=== PATIENT | female | born 1980 | race Caucasian/White ===

== ENCOUNTER 2020-08-21 16:33 | Outpatient (REF) | payer MEDICAID, SELFPAY ==
--- NOTE | ~2020-08-21 | US_ITS ---
EXAMINATION: PELVIC ULTRASOUND CLINICAL INFORMATION: Pain. Rule out torsion. COMPARISON: Previous CT of the abdomen and pelvis August 2017 and pelvic ultrasound most recent February 2019 TECHNIQUE: Transabdominal and transvaginal pelvic ultrasound was performed. Transvaginal exam was performed for better visualization of the uterus and ovaries. FINDINGS: The uterus is anteverted and measures 7.7 x 3.8 x 4.8 cm in dimension. No focal uterine lesion is seen. Endometrial thickness is normal measuring 0.4 cm. The ovaries are normal-appearing. The right ovary measures 1.4 x 1.8 x 1.1 cm and the left ovary measures 2.2 x 1.7 x 1 cm. Arterial and venous flow is documented to both ovaries. There is no evidence of torsion. There is no fluid in the pelvis. US/US pelvic ovarian doppler IMPRESSION: Normal pelvic ultrasound. No evidence of torsion.
--- NOTE | ~2020-08-21 | US_ITS ---
EXAMINATION: PELVIC ULTRASOUND CLINICAL INFORMATION: Pain. Rule out torsion. COMPARISON: Previous CT of the abdomen and pelvis August 2017 and pelvic ultrasound most recent February 2019 TECHNIQUE: Transabdominal and transvaginal pelvic ultrasound was performed. Transvaginal exam was performed for better visualization of the uterus and ovaries. FINDINGS: The uterus is anteverted and measures 7.7 x 3.8 x 4.8 cm in dimension. No focal uterine lesion is seen. Endometrial thickness is normal measuring 0.4 cm. The ovaries are normal-appearing. The right ovary measures 1.4 x 1.8 x 1.1 cm and the left ovary measures 2.2 x 1.7 x 1 cm. Arterial and venous flow is documented to both ovaries. There is no evidence of torsion. There is no fluid in the pelvis. US/US pelvic complete IMPRESSION: Normal pelvic ultrasound. No evidence of torsion.
--- NOTE | ~2020-08-21 | US_ITS ---
EXAMINATION: PELVIC ULTRASOUND CLINICAL INFORMATION: Pain. Rule out torsion. COMPARISON: Previous CT of the abdomen and pelvis August 2017 and pelvic ultrasound most recent February 2019 TECHNIQUE: Transabdominal and transvaginal pelvic ultrasound was performed. Transvaginal exam was performed for better visualization of the uterus and ovaries. FINDINGS: The uterus is anteverted and measures 7.7 x 3.8 x 4.8 cm in dimension. No focal uterine lesion is seen. Endometrial thickness is normal measuring 0.4 cm. The ovaries are normal-appearing. The right ovary measures 1.4 x 1.8 x 1.1 cm and the left ovary measures 2.2 x 1.7 x 1 cm. Arterial and venous flow is documented to both ovaries. There is no evidence of torsion. There is no fluid in the pelvis. US/US transvaginal IMPRESSION: Normal pelvic ultrasound. No evidence of torsion.
== END 2020-08-21 16:34 | disposition home or self-care (01) ==
LOC: HO.US 16:33
PROVIDERS: Absent Provider Internal Medicine Geriatric Medicine; PCP Internal Medicine Geriatric Medicine; Visit Provider Registered Nurse
DX: R10.2 Pelvic and perineal pain (principal); N92.0 Excessive and frequent menstruation with regular cycle
CPT/HCPCS: 76830; 76856; 93975

== ENCOUNTER 2020-08-22 15:54 | Outpatient (REF) | payer MEDICAID, SELFPAY ==
[2020-08-22 17:34] LABS: HCG Quantitative < 2 mIU/mL
== END 2020-08-22 15:55 | disposition home or self-care (01) ==
LOC: HO.LAB 15:54
PROVIDERS: Registered Nurse; PCP Internal Medicine Geriatric Medicine; Visit Provider Internal Medicine Geriatric Medicine
DX: N92.0 Excessive and frequent menstruation with regular cycle (principal); R10.2 Pelvic and perineal pain; Z32.02 Encounter for pregnancy test, result negative
CPT/HCPCS: 36415; 84702

== ENCOUNTER 2021-02-06 09:05 | Outpatient (REF) | payer MEDICAID, SELFPAY | END 2021-02-06 09:06 | disposition home or self-care (01) | LOC: HO.LAB 09:05 | PROVIDERS: Visit Provider Advanced Practice Midwife | DX: O99.320 Drug use complicating pregnancy, unspecified trimester (principal); O20.9 Hemorrhage in early pregnancy, unspecified; O20.0 Threatened abortion; F11.90 Opioid use, unspecified, uncomplicated | CPT/HCPCS: 36415; 81025; 84702; 99202 ==

== ENCOUNTER 2021-02-08 13:49 | Outpatient (REF) | payer MEDICAID, SELFPAY ==
--- NOTE | ~2021-02-08 | US_ITS ---
EXAMINATION: US OBSTETRICAL ULTRASOUND CLINICAL INFORMATION: History of hemorrhage in early . Dating. COMPARISON: None. LMP: 12/07/2020. Gestational age by maternal dates is 9 weeks 0 days. Estimated date of delivery by maternal dates is 09/13/2021. TECHNIQUE: Transabdominal first trimester OB ultrasound FINDINGS: There is a single intrauterine gestational sac with visible yolk sac, embryo/fetus, and cardiac activity. There is no significant subchorionic hemorrhage or hematoma. HR: 163 beats per minute. CRL (crown rump length): 2.5 cm (9 weeks 3 days +/- 4 days). GIFTY (estimated date of delivery): 09/10/2021 +/- 4 days. MATERNAL ADNEXA: The right maternal ovary measures 1.9 x 1.7 x 3.7 cm. The left maternal ovary measures 3.4 x 2.6 x 3.7 cm. There is no significant maternal adnexal mass. No maternal pelvic ascites. US/US OB <= 14 weeks fetus IMPRESSION: 1. Single intrauterine gestation with ultrasound gestational age of 9 weeks 3 days +/- 4 days. 2. Estimated date of delivery is 09/10/2021 +/- 4 days. 3. No maternal adnexal mass or pelvic ascites.
== END 2021-02-08 13:50 | disposition home or self-care (01) ==
LOC: HO.HMGCX 13:49
PROVIDERS: PCP Internal Medicine Geriatric Medicine; Visit Provider Advanced Practice Midwife
DX: O20.9 Hemorrhage in early pregnancy, unspecified (principal); O09.529 Supervision of elderly multigravida, unspecified trimester
CPT/HCPCS: 76801

== ENCOUNTER → 2021-02-16 13:51 | Outpatient (BNVA) | payer MEDICAID, SELFPAY | PROVIDERS: PCP Internal Medicine Geriatric Medicine; Visit Provider Advanced Practice Midwife | DX: O99.211 Obesity complicating pregnancy, first trimester (principal); E66.9 Obesity, unspecified; Z3A.10 10 weeks gestation of pregnancy | CPT/HCPCS: 99212 ==

== ENCOUNTER 2021-02-21 09:25 | Outpatient (REF) | payer MEDICAID, SELFPAY ==
[2021-02-21 10:02] LABS: Hematocrit 38.2 % (37.0-47.0); Hemoglobin 12.5 g/dl (12.0-16.0); Mean Corpuscular HGB Conc 32.7 g/dl (31.0-35.0); Mean Corpuscular Hemoglobin 30.9 pg (27.0-33.0); Mean Corpuscular Volume 94.3 fL (80.0-98.0); Mean Platelet Volume 10.3 fL (9.4-12.3); Platelet Count 254 X10*3/uL (160-400); Red Blood Count 4.05 X10*6/uL (4.20-5.50); White Blood Count 6.4 X10*3/uL (4.8-10.8)
[2021-02-21 10:58] LABS: Alanine Aminotransferase 12 U/L (0-31); Aspartate Amino Transferase 15 U/L (5-31); Blood Urea Nitrogen 6 mg/dL (9-16); Estimated Glomerular Filt Rate > 60
[2021-02-21 10:59] LABS: HBsAGNum1 0.15 S/CO (0.00-0.99); HIV AB/AG Nonreactive (Nonreactive); HIV Num 1 0.08 S/CO (0.00-0.99); Hepatitis B Surface Antigen Negative (Negative)
[2021-02-21 11:03] LABS: Syphilis Screen Nonreactive (Nonreactive)
[2021-02-21 11:09] LABS: Uric Acid 2.7 mg/dL (2.4-5.7)
[2021-02-21 11:19] LABS: Amphetamine Screen Urine Not Detected (Not Detect); Barbiturates, Urine Not Detected (Not Detect); Benzodiazepines Screen Urine Not Detected (Not Detect); Cannabinoid Screen Urine Not Detected (Not Detect); Cocaine Screen Urine Not Detected (Not Detect); Fentanyl, urine Not Detected (Not Detect); Opiate Screen Urine Not Detected (Not Detect); Phencyclidine Screen Urine Not Detected (Not Detect)
[2021-02-21 11:22] LABS: Creatinine Urine 130.63 mg/dL; Total Protein Urine Random < 7 mg/dL (<12)
[2021-02-21 11:30] LABS: ~HepC Num1 0.06 S/CO (0.00-0.79); ~Hepatitis C Antibody Nonreactive (Nonreactive)
[2021-02-21 12:05] LABS: Glucose 1 Hour PP 50gm Dose 107 mg/dL (60-140)
[2021-02-22 19:01] LABS: Rubella IgG Antibody 2.02 Index
== END 2021-02-21 09:26 | disposition home or self-care (01) ==
LOC: HO.LAB 09:25
PROVIDERS: PCP Internal Medicine Geriatric Medicine; Visit Provider Advanced Practice Midwife
DX: O09.529 Supervision of elderly multigravida, unspecified trimester (principal); Z32.01 Encounter for pregnancy test, result positive; Z3A.00 Weeks of gestation of pregnancy not specified; Z67.41 Type O blood, Rh negative; Z79.899 Other long term (current) drug therapy
CPT/HCPCS: 80307; 82565; 84156; 84450; 84460; 84520; 84550; 85027; 86762; 86780; 86787; 86803; 86850; 86900; 86901; 87340; 87389

== ENCOUNTER 2021-03-02 13:20 | Outpatient (REF) | payer MEDICAID, SELFPAY ==
--- NOTE | ~2021-03-02 | US_ITS ---
EXAMINATION: OBSTETRICAL ULTRASOUND, FIRST TRIMESTER HISTORY: 40-year-old at the 12.1 weeks of gestation NT screening AMA COMPARISON: 02/08/2021 TECHNIQUE: Real time transabdominal imaging with color and M-mode Doppler. FINDINGS: A single, live IUP CRL of 57.9 mm c/w 12.3wks is noted. Heart Rate: 154 beats per minute. Normal yolk sac seen. NT was 1.32.mm. NB Present The embryo appears sonographically wnl for this GA. Both maternal ovaries are seen and appear normal. GESTATIONAL AGE: 1. Established GA: 12.1 wks 2. GA from AUA: 12.3 wks ESTIMATED DATE OF DELIVERY: 1. Established GIFTY: 09/13/2021 2. GIFTY from AUA: 09/11/2021 US/US OB 1T nuc measure IMPRESSION: 1. Single live IUP 2. Size equals dates 3. NT of 1.32 mm MFM Consultation: I reviewed the ultrasound findings along with significance of NT measurement. The NT of less than 3mm is generally reassuring. However, the sensitivity for T21 detection is only 60%. I reviewed the availability of serum aneuploidy screening which includes cell-free DNA and placental protein based tests. I discussed the sensitivity, false-positive rate, and other limitations associated with each test. I also reviewed the availability of invasive diagnostic tests that are associated small but definite risk of miscarriage. We also reviewed the differences between screening tests and diagnostic tests. After our discussion, she opted for the First trimester screening that is based on cell-free DNA or non-invasive testing (NIPT). The result will be faxed to your office in approximately 7 days. A follow up at 18 weeks for survey has been scheduled. Thank you very much for this referral. Total time 30 minutes. The time spent was devoted to counseling the patient about the disease and diagnosis, coordinating care including reviewing her records, pertinent lab data and studies, as well as discussing diagnostic evaluation and workup, plan therapeutic interventions and future disposition of care. This includes any additional research needed to obtain further information in formulating the plan of care of this patient. This note was generated with a voice recognition program. Please excuse any errors which may have been overlooked during my review of this note. Sometimes these errors may affect the content or meaning of a given sentence.
== END 2021-03-02 13:21 | disposition home or self-care (01) ==
LOC: HO.US 13:20
PROVIDERS: PCP Internal Medicine Geriatric Medicine; Visit Provider Advanced Practice Midwife
DX: O09.511 Supervision of elderly primigravida, first trimester (principal); Z36.82 Encounter for antenatal screening for nuchal translucency; Z3A.12 12 weeks gestation of pregnancy
CPT/HCPCS: 76813

== ENCOUNTER 2021-03-08 08:15 | Outpatient (REF) | payer MEDICAID, SELFPAY ==
[2021-03-08 13:11] LABS: CT PCR NOT DETECTED (Not Detect.)
[2021-03-08 13:12] LABS: NG PCR NOT DETECTED (Not Detect.)
== END 2021-03-08 08:16 | disposition home or self-care (01) ==
LOC: HO.LAB 08:15
PROVIDERS: PCP Internal Medicine Geriatric Medicine; Visit Provider Advanced Practice Midwife
DX: O09.521 Supervision of elderly multigravida, first trimester (principal); O26.891 Other specified pregnancy related conditions, first trimester; R21 Rash and other nonspecific skin eruption; Z3A.13 13 weeks gestation of pregnancy
CPT/HCPCS: 81003; 87491; 87591; 99212

== ENCOUNTER → 2021-04-09 13:59 | Outpatient (BNVA) | payer MEDICAID, SELFPAY | PROVIDERS: PCP Internal Medicine Geriatric Medicine; Visit Provider Advanced Practice Midwife | DX: O09.522 Supervision of elderly multigravida, second trimester (principal); O99.332 Smoking (tobacco) complicating pregnancy, second trimester; F17.290 Nicotine dependence, other tobacco product, uncomplicated; Z3A.18 18 weeks gestation of pregnancy; Z71.6 Tobacco abuse counseling | CPT/HCPCS: 81003; 99212 ==

== ENCOUNTER 2021-04-13 14:21 | Outpatient (REF) | payer MEDICAID, SELFPAY ==
--- NOTE | ~2021-04-13 | US_ITS ---
EXAMINATION: US OBSTETRICAL CLINICAL INFORMATION: 40-year-old at 18.1 weeks of gestation AMA Suspected anomaly Status post abdominoplasty, gastric bypass, multiple hernia repair with mesh placement COMPARISON: 03/02/2021 TECHNIQUE: Real-time transabdominal ultrasound was performed using C1-5 megahertz transducer. FINDINGS: A single, active, fetus is seen in vertex presentation. The placenta is posterior without previa, and the amniotic fluid volume is wnl. MEASUREMENTS: 1. Biparietal Diameter: 4.1 cm; 18.4 wks 2. Occipital Frontal Diameter: 5.4 cm 3. Head Circumference: 15.8 cm; 18.5 wks 4. Abdominal Circumference: 14.1 cm; 19.4 wks 5. Femur Length: 3.1 cm; 19.6 wks 6. Humerus Length: 2.9 cm; 19.3 wks 7. Ulna Length: 2.6 cm; 19.5 wks 8. Lateral ventricle: 0.53 cm 9. Cerebellum: 1.96 cm; 20.1 wks 10. Cisterna Magna: 0.6 cm 11. Nuchal Fold: 4.7 mm 12. Heart Rate: 153 beats per minute Rt ovary: normal Lt ovary: normal Cervical length 4.8 cm on T/A. GESTATIONAL AGE: 1. Established GA: 18.1 wks 2. GA from [facility]: 19.2 wks ESTIMATED DATE OF DELIVERY: 1. Established GIFTY: 09/13/2021 2. GIFTY from [facility]: 09/05/2021 ANATOMY: Limited views of aortic arch, fourth ventricle and cerebellar vermix due to poor acoustics window. The visualized anatomy includes but not limited to: 1. Cranium: Normal 2. Intracranial anatomy: cavum septum pellucidi, lateral ventricles, choroid plexus, cerebellum, posterior fossa, third. The views of the fourth ventricle and cerebellar vermix were limited. 3. face: orbits, lip/palate, profile, nasal bone 4. Heart: four-chamber view of the heart, ventricular septum, foramen ovale, pulmonary vein, left and right outflow tracts, three-vessel view, 3 vessel trachea view, and ductal arches, situs.. 5. Diaphragm: Normal 6. Abdominal wall: Normal 7. Cord Insertion: Normal 8. Spine: Cervical, thoracic, lumbar, sacral. 9. Stomach: Normal size and shape 10. Right Kidney: Normal 11. Left Kidney: Normal 12. 3 vessel cord: Normal 13. Upper extremity: Open hands, fifth digit. 14. Lower extremity: Tibia, fibula, bilateral feet. 15. Bladder: Normal 16. Genitalia: Female, patient aware US/US OB /maternal detail IMPRESSION: 1. Single, living, intrauterine with appropriate biometry. 2. Suboptimal views of aortic arch, fourth ventricle and cerebellar vermix. No abnormalities were seen in visualized anatomy. DISCUSSION: I reviewed today's ultrasound findings. We discussed the limitations of ultrasound in diagnosing aneuploidy and other congenital abnormalities. I reviewed the differences between screening test and diagnostic test. Amniocentesis was discussed and declined. She had the gastric bypass, abdominoplasty as well as multiple abdominal hernia repaired with the mesh placement. She is not sure about her iron or vitamin B 12 status. We discussed the malabsorption of vitamins and other nutrients after gastric bypass. She may need intravenous iron and vitamin B12 supplements given intramuscularly. Her last was approximately 18 years ago before the surgery. She was informed that the baseline incidence of congenital abnormalities is approximately 3-5%. Not all these conditions are diagnosable in utero. RECOMMENDATIONS: 1. Follow-up in one month has been scheduled. Thank you for allowing me to participate in her care. Total time 30 minutes. The time spent was devoted to counseling the patient about the disease and diagnosis, coordinating care including reviewing her records, pertinent lab data and studies, as well as discussing diagnostic evaluation and workup, plan therapeutic interventions and future disposition of care. This includes any additional research needed to obtain further information in formulating the plan of care of this patient. This note was generated with a voice recognition program. Please excuse any errors which may have been overlooked during my review of this note. Sometimes these errors may affect the content or meaning of a given sentence.
== END 2021-04-13 14:22 | disposition home or self-care (01) ==
LOC: HO.US 14:21
PROVIDERS: Visit Provider Advanced Practice Midwife
DX: O09.522 Supervision of elderly multigravida, second trimester (principal); O99.842 Bariatric surgery status complicating pregnancy, second trimester; Z3A.18 18 weeks gestation of pregnancy
CPT/HCPCS: 76811

== ENCOUNTER → 2021-05-07 14:06 | Outpatient (BNVA) | payer MEDICAID, SELFPAY | PROVIDERS: PCP Internal Medicine Geriatric Medicine; Visit Provider Advanced Practice Midwife | DX: O09.522 Supervision of elderly multigravida, second trimester (principal); O36.62X0 Maternal care for excessive fetal growth, second trimester, not applicable or unspecified; N64.4 Mastodynia; Z3A.22 22 weeks gestation of pregnancy | CPT/HCPCS: 81003; 99212 ==

== ENCOUNTER 2021-05-09 14:52 | Outpatient (REF) | payer MEDICAID, SELFPAY ==
--- NOTE | ~2021-05-09 | US_ITS ---
EXAMINATION: US DIAGNOSTIC ULTRASOUND BREAST, RIGHT CLINICAL INFORMATION: , 22 weeks gestation with one-month history pain lateral right breast. No palpable mass or discharge. COMPARISON: None. TECHNIQUE: Ultrasound right breast is targeted to the outer quadrants using grayscale imaging and color Doppler without and with harmonics. FINDINGS: There is no focal suspicious finding. There is no cystic or solid mass, architectural abnormality, duct ectasia, or edema in the soft tissue planes. No skin thickening. Results are discussed with the patient at time of visit. Patient declined additional imaging with digital breast tomosynthesis abdominal shielding at time of visit. Abdominal shielding at time of visit. US/US breast RT limited IMPRESSION: Unremarkable targeted right breast ultrasound. ASSESSMENT: BI-RADS 1: Negative RECOMMENDATION: 1. Patient's right breast pain should be be managed based on the clinical impression. 2. Consider additional imaging with bilateral mammography and abdominal shielding.
== END 2021-05-09 14:53 | disposition home or self-care (01) ==
LOC: HO.MAMMO 14:52
PROVIDERS: Visit Provider Advanced Practice Midwife
DX: N64.4 Mastodynia (principal)
CPT/HCPCS: 76642

== ENCOUNTER 2021-05-11 14:24 | Outpatient (REF) | payer MEDICAID, SELFPAY ==
--- NOTE | ~2021-05-11 | US_ITS ---
EXAMINATION: OBSTETRICAL ULTRASOUND, Follow up HISTORY: 40-year-old at 22.1 weeks of gestation AMA Status post abdominoplasty, gastric bypass and multiple hernia repair with mesh placement COMPARISON: 05/19/2021 TECHNIQUE: Real time transabdominal imaging with color and M-mode Doppler. PRESENTATION: Vertex PLACENTA LOCATION: Posterior without previa AMNIOTIC FLUID: MARIANA 12.8 MEASUREMENTS: 1. Biparietal Diameter: 5.3 cm; 22.2 wks 2. Head Circumference: 20.0 cm; 22.2 wks 3. Abdominal Circumference: 17.8 cm; 22.5 wks 4. Femur Length: 4.0 cm; 22.6 wks 5. Heart Rate: 150 beats per minute WEIGHT: EFW: 523 grams (1 lbs 2 oz) -- 70 %. GESTATIONAL AGE: 1. Established GA: 22.1 wks 2. GA from AUA: 22.4 wks ESTIMATED DATE OF DELIVERY: 1. Established GIFTY: 09/13/2021 2. GIFTY from A: 09/10/2021 US/US OB follow up IMPRESSION: 1. A single active fetus is in vertex presentation 2. Size equals dates 3. Normal amniotic fluid volume Her gastric bypass was 2007. She is being monitored for her iron status. Given her age and gastric bypass, suggest the monthly growth evaluation. Thank you very much for this referral. Total time 20 minutes. The time spent was devoted to counseling the patient about the disease and diagnosis, coordinating care including reviewing her records, pertinent lab data and studies, as well as discussing diagnostic evaluation and workup, plan therapeutic interventions and future disposition of care. This includes any additional research needed to obtain further information in formulating the plan of care of this patient. This note was generated with a voice recognition program. Please excuse any errors which may have been overlooked during my review of this note. Sometimes these errors may affect the content or meaning of a given sentence.
== END 2021-05-11 14:25 | disposition home or self-care (01) ==
LOC: HO.US 14:24
PROVIDERS: PCP Internal Medicine Geriatric Medicine; Visit Provider Advanced Practice Midwife
DX: O35.9XX0 Maternal care for (suspected) fetal abnormality and damage, unspecified, not applicable or unspecified (principal); O09.512 Supervision of elderly primigravida, second trimester
CPT/HCPCS: 76816

== ENCOUNTER 2021-05-16 11:29 | Outpatient (REF) | payer MEDICAID, SELFPAY ==
[2021-05-17 03:31] LABS: CT PCR NOT DETECTED (Not Detect.); NG PCR NOT DETECTED (Not Detect.)
[2021-05-17 08:49] LABS: BV Int Neg Control Negative (Negative); BV Int Pos Control Positive (Positive)
== END 2021-05-16 11:30 | disposition home or self-care (01) ==
LOC: HO.LAB 11:29
PROVIDERS: PCP Internal Medicine Geriatric Medicine; Visit Provider Advanced Practice Midwife
DX: O26.892 Other specified pregnancy related conditions, second trimester (principal); N89.8 Other specified noninflammatory disorders of vagina; Z20.2 Contact with and (suspected) exposure to infections with a predominantly sexual mode of transmission; Z3A.23 23 weeks gestation of pregnancy
CPT/HCPCS: 81003; 87480; 87491; 87510; 87591; 87660; 99212

== ENCOUNTER 2023-01-27 11:23 | Outpatient (REF) | payer MEDICAID, SELFPAY ==
[2023-01-27 11:57] LABS: MANUAL DIFF FLAG NO
[2023-01-27 12:05] LABS: Basophils Percent Auto 0.7 % (0-2); Eosinophils Absolute Auto 0.1 X10*3/uL (0.0-0.4); Eosinophils Percent Auto 2.7 % (0-4); Hematocrit 35.6 % (37.0-47.0); Hemoglobin 10.9 g/dl (12.0-16.0); Imm Gran Abs Auto 0.01 X10*3/uL (0.00-0.03); Imm Gran Pct Auto 0.2 % (0.0-0.4); Lymphocytes Absolute Auto 1.9 X10*3/uL (1.2-4.9); Lymphocytes Percent Auto 42.1 % (20-40); Mean Corpuscular HGB Conc 30.6 g/dl (31.0-35.0); Mean Corpuscular Hemoglobin 26.3 pg (27.0-33.0); Mean Corpuscular Volume 85.8 fL (80.0-98.0); Mean Platelet Volume 10.7 fL (9.4-12.3); Monocytes Absolute Auto 0.4 X10*3/uL (0.1-1.2); Monocytes Percent Auto 9.1 % (2-11); Neutrophils Percent Auto 45.2 % (45-73); Platelet Count 274 X10*3/uL (160-400); Red Blood Count 4.15 X10*6/uL (4.20-5.50); Red Cell Distribution Width 14.7 % (11.0-16.0); White Blood Count 4.5 X10*3/uL (4.8-10.8)
[2023-01-27 13:04] LABS: Alanine Aminotransferase 12 U/L (0-31); Alkaline Phosphatase 90 U/L (39-117); Anion Gap 12 (12-20); Aspartate Amino Transferase 21 U/L (5-31); Bilirubin Total 0.3 mg/dL (0.0-1.0); Blood Urea Nitrogen 7 mg/dL (9-16); Carbon Dioxide 26 mmol/L (22-29); Chloride 107 mmol/L (96-108); Cholesterol 210 mg/dL (<200); Estimated Glomerular Filt Rate > 60; Ferritin 7 ng/mL (10-250); Glucose Random 98 mg/dL (60-115); HDL Cholesterol 72 mg/dL (>40); Iron 24 mcg/dL (30-160); LDL Cholesterol Calculated 127 mg/dL (<100); Percent Iron Saturation 6 % (15-50); Potassium 4.2 mmol/L (3.3-5.1); Sodium 141 mmol/L (135-145); TSH reflex Free T4 1.14 uIU/mL (0.32-4.0); Total Iron Binding Capacity 404 mcg/dL (228-428); Total Protein 7.2 g/dL (6.5-8.0); Triglycerides 57 mg/dL (<150); Unsaturated Iron Binding 380 ug/dL; Vitamin D 25-OH Total 14.7 ng/mL (>30)
[2023-01-27 13:15] LABS: Folate 13.9 ng/mL (> or = 4.0); Vitamin B12 374 pg/mL (200-900)
== END 2023-01-27 11:24 | disposition home or self-care (01) ==
LOC: HO.HHCL 11:23
PROVIDERS: Visit Provider Internal Medicine Geriatric Medicine
DX: Z00.00 Encounter for general adult medical examination without abnormal findings (principal); E53.8 Deficiency of other specified B group vitamins; Z13.1 Encounter for screening for diabetes mellitus; Z13.220 Encounter for screening for lipoid disorders
CPT/HCPCS: 36415; 80053; 80061; 82306; 82607; 82728; 82746; 83540; 84443; 85025

== ENCOUNTER → 2023-07-18 14:20 | Outpatient (BNV) | payer MEDICAID, SELFPAY | PROVIDERS: PCP Internal Medicine Geriatric Medicine; Referring Provider Internal Medicine; Visit Provider Internal Medicine Medical Oncology | DX: D64.9 Anemia, unspecified (principal) | CPT/HCPCS: 99204 ==

== ENCOUNTER 2023-07-31 15:16 | Outpatient (AMB) | payer MEDICAID, SELFPAY ==
--- NOTE | 2023-07-31 15:18 | MHC.OFFVIS ---
Intake Visit Reasons: [facility] REF. 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 Patient had a vein procedure back in 2007 through [facility] on the left leg. Has not been back since. Patient has noticable veins on her left leg near the knee. Worsened after . Patient states she has swelling , pain after walking/standing. Says her legs jerk at night. Allergies contact metal agent Allergy (Unknown, Verified 07/31/23 15:25) Unknown morphine Allergy (Unknown, Verified 07/31/23 15:25) nausea and vomiting IVP dye Allergy (Unknown, Uncoded 07/18/23 14:32) anaphylaxis HPI HPI [facility] REF. VV with pain: Details: Pleasant 42-year-old female patient presents for painful varicose veins. Complaints include pain over varicosities, swelling of lower extremities, cramping, fatigue, and heaviness of the lower extremities. 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 It is noted more so in right leg. In addition she notes that she has had 11 prior abdominal surgeries and has a history of intestinal dysmotility. Patient previous venous ablation performed in 2007 at [facility] Patient denies any history of DVT/ PE. Patient denies any history of phlebitis. Trial of compression includes - [id number] They now present for vascular evaluation regarding their varicose veins. [facility] Medical History Severe obesity (BMI >= 40) Bleeding in early Plantar fascia syndrome Venous insufficiency Hydradenitis Hx of migraine headaches Opioid dependence Gastric motility disorder Irritable bowel Chronic pain Depression with anxiety Surgical History H/O abdominoplasty H/O hernia repair H/O bariatric surgery Family History Maternal Aunt History of breast cancer Kidney disease Diabetes mellitus Paternal Grandfather Intestinal cancer Social History Household Members: Family Both parents involved: Yes Caregiver staying overnight: No Housing: House Are you a primary cattle care worker to a significant other at home: No Do you presently have visiting nurse or other home services: No 75 years or older and lives alone: No Alcohol intake: never e-Cigarette/Vaping Use: Currently Using Substance Use Type: Former Substance User Agree to transfusion: Yes service: No Current occupational status: employed Current occupation: [employer] therapist Current occupational exposures/hazards: No Sexual orientation: Straight/Heterosexual Gender identity: Female Female Reproductive History Menstrual Age of Menarche: 10 Review of Systems Const Reports as per HPI ENT Reports no additional complaints Card Denies chest pain, Denies chest pain at rest and Denies chest pain with activity Resp Denies chest congestion and Denies cough GI Reports no additional complaints Musc Details: pain over varicosities, aching of lower extremities, swelling, cramping, heaviness and tiredness, itching Denies abnormal gait Skin/Breast Reports pruritus and Denies wounds Neuro Reports no additional complaints and Denies abnormal gait Psych Denies no additional complaints Physical Exam Const General: cooperative, healthy appearing and comfortable Orientation/consciousness: oriented to person, oriented to place and oriented to time Neck Carotids: no bruits Chest Chest palpation & inspection: normal inspection of the chest and normal palpation of entire chest wall Resp Effort & Inspection: normal respiratory effort and able to speak in complete sentences Cardio Rate: regular rate Heart sounds: S1 normal heart sound present and S2 normal heart sound present Peripheral pulses: Peripheral pulses 2+ throughout GI Inspection: Yes normal to inspection Skin Other: +2 edema, right greater than left CEAP Classification C4 - skin color changes Ep - Etiology Primary As - superficial veins P - reflux General skin exam: dry skin Neuro General: oriented to person, oriented to place and oriented to time Extrem Right lower extremity: full ROM, normal capillary refill and edema Left lower extremity: full ROM, normal capillary refill and edema Psych Mental Status: mental status grossly normal Assessment & Plan Assessment & Plan (1) Varicose veins of right lower extremity with inflammation: Code(s): I83.11 - Varicose veins of right lower extremity with inflammation Category: Medical Plan: In short, the patient has evidence of venous insufficiency. I have discussed the pathophysiology with the patient. In addition I have provided informational material regarding venous disease to the patient. We have discussed conservative measures including compression, elevation, and exercise. I have also provided a handout regarding appropriate use of compression stockings and where to purchase good compression stockings as well. I have taken the liberty of ordering venous insufficiency testing with the patient. They will follow up with me after testing. The patient had an opportunity to ask questions regarding the treatment plan. All questions were answered. Imaging studies, laboratory studies and physical exam results were discussed and reviewed in detail. No major barriers to understanding were identified. The patient expressed understanding and agreement with the above treatment plan. The patient is aware they should contact our office by phone for worsening of the current condition or the appearance of new symptoms. Thank you for allowing me to participate in the vascular care of this patient. If you have any questions or concerns regarding the treatment for the above condition please do not hesitate to contact me. The office telephone contact is [phone]. This note is constructed using voice recognition software. While every effort has been made to ensure accuracy, assembler unit errors may have been included. Thank you for allowing me to participate in the care of your patient. Yours sincerely, Taiwo Moore MD, FACS, R.P.V.I. Orders: Orders US venous duplex LE BI 1 Week I83.11 - Varicose veins of right lower extremity with inflammation Coding Level of Care Code New Pt Level 4 (07912) Diagnoses Varicose veins of right lower extremity with inflammation I83.11
== END 2023-07-31 15:45 | disposition home or self-care (01) ==
PROVIDERS: PCP Internal Medicine Geriatric Medicine; Referring Provider Internal Medicine Geriatric Medicine; Visit Provider Surgery Vascular Surgery
DX: I83.11 Varicose veins of right lower extremity with inflammation (principal)
CPT/HCPCS: 99203

== ENCOUNTER → 2023-07-31 15:16 | Outpatient (BNVA) | payer MEDICAID, SELFPAY | PROVIDERS: PCP Internal Medicine Geriatric Medicine; Visit Provider Surgery Vascular Surgery | DX: I83.11 Varicose veins of right lower extremity with inflammation (principal) | CPT/HCPCS: 99202 ==